=== PATIENT | female | born 1975 | race Caucasian/White ===

== ENCOUNTER 2017-09-28 09:30 | Outpatient (AMBR) | payer MEDICAID, SELFPAY ==
--- NOTE | 2017-09-24 12:51 | PT.ODAYNRPT ---
PT Outpatient Daily Note Date of Service: September 24, 2017 OP Daily Note Visit Reasons: ankle pain Outpatient Physical Therapy Treatment Date: 09/24/17 Subjective: pt c/o ankle almost buckling with calf raises. Objective: see flow sheet. Assessment: pt can perform calf raises but if she tries to increase ROM then her ankle will tend to buckle. advised pt to calf raise up to that point and back down. ankle instability with PF but does well with DF as observed with other exercises. pt had a good fatigue after ther ex today and wanted ice pack for a few mins. Plan: continue POC per PT. Length of Time (minutes) of Treatment: 30 Minutes Office Procedures PT Procedures PT Date of Service: 09/24/17 Therapeutic Exercise 30 minutes: Yes
--- NOTE | 2017-09-28 10:04 | PT.ODAYNRPT ---
PT Outpatient Daily Note Date of Service: September 28, 2017 OP Daily Note Visit Reasons: ankle pain Outpatient Physical Therapy Treatment Date: 09/28/17 Subjective: Pt's ankle feel so so. Pt mention that after the squatting machine her knee was swollen Objective: Please see flow chart for list of ther ex performed Assessment: no TG squat today; no ankle or knee pain after therapy session. Plan: Continue with PT Length of Time (minutes) of Treatment: 30 Minutes Office Procedures PT Procedures PT Date of Service: 09/24/17 Therapeutic Exercise 30 minutes: Yes PT Procedures PT Date of Service: 09/28/17 Therapeutic Exercise 30 minutes: Yes
== END 2017-10-22 23:59 | disposition home or self-care (01) ==
PROVIDERS: PCP Family Medicine; Referring Provider Family Medicine; Visit Provider Orthopaedic Surgery
DX: M25.373 Other instability, unspecified ankle (principal)
CPT/HCPCS: 97110